=== PATIENT | male | born 1960 | race Asian ===

== ENCOUNTER 2018-04-21 08:14 | Day surgery (SDC) | payer OTHER ==
[2018-04-21] MEDS ORDERED: FENTAnyl 50 MCG/ML VIAL (10:24)
[2018-04-21] MEDS ORDERED: MIDAZOLAM 1 MG/ML 2 ML INJ ×2 (10:24)
== END 2018-04-21 12:03 | disposition home or self-care (01) ==
LOC: GIL 08:14
DX: Z12.11 Encounter for screening for malignant neoplasm of colon (principal); K64.8 Other hemorrhoids; K44.9 Diaphragmatic hernia without obstruction or gangrene; K21.9 Gastro-esophageal reflux disease without esophagitis
CPT/HCPCS: 43239; 88305; 88312

== ENCOUNTER 2018-06-12 06:25 | Emergency (ER) | payer OTHER ==
[2018-06-12] MEDS: PROMETHAZINE/CODEINE 5ML CUP PO (08:17)
[2018-06-12] MEDS: ACETAMINOPHEN 500 MG TAB PO (08:17)
[2018-06-12] MEDS: KETOROLAC 60 MG INJ IM (08:17)
[2018-06-12] MEDS: DEXAMETHASONE 10 MG/ML 1 ML INJ IM (08:17)
[2018-06-12] MEDS: BENZONATATE 100 MG CAP PO (08:29)
[2018-06-12] MEDS ORDERED: BENZONATATE 100 MG CAP PO (08:30)
== END 2018-06-12 10:01 | disposition home or self-care (01) ==
LOC: FTE 06:25
DX: J40 Bronchitis, not specified as acute or chronic (principal); J01.90 Acute sinusitis, unspecified; Z79.82 Long term (current) use of aspirin
CPT/HCPCS: 71046; 96372; 99284-25